=== PATIENT | female | born 1960 | race Caucasian/White ===

== ENCOUNTER 2025-02-28 07:43 | Day surgery (SDC) | payer MEDICARE, MEDICAID ==
[2025-02-28 07:58] VITALS: BP 148/85; PULSE 63
[2025-02-28] MEDS: Polymyxin B/Trimethoprim 10 ML Bottle EYELF SCH (08:18)
[2025-02-28] MEDS: Tropicamide 1% Ophth Soln 3 ML Bottle EYELF SCH (08:33)
[2025-02-28] MEDS: Tetracaine HCl/PF 0.5% 4 ML Bottle EYEBOTH SCH (10:12)
[2025-02-28] MEDS: Lidocaine 1% PF 2 ML SDV INJECT SCH (10:38)
[2025-02-28] MEDS: Cefuroxime 10 MG/ML SYRINGE EYELF SCH (10:40)
[2025-02-28] MEDS: Pilocarpine 4% Ophth Soln 15 ML Bot EYELF SCH (10:51)
== END 2025-02-28 10:59 ==
LOC: JD.SDS 07:43
PROVIDERS: ATTEND Ophthalmology
DX: H25.813 Combined forms of age-related cataract, bilateral (principal); H00-H59 Diseases of the eye and adnexa; H02.33 Blepharochalasis right eye, unspecified eyelid; D23.121 Other benign neoplasm of skin of left upper eyelid, including canthus; H35.3131 Nonexudative age-related macular degeneration, bilateral, early dry stage; H35.363 Drusen (degenerative) of macula, bilateral; H16.103 Unspecified superficial keratitis, bilateral; H16.223 Keratoconjunctivitis sicca, not specified as Sjogren's, bilateral; D23.122 Other benign neoplasm of skin of left lower eyelid, including canthus; H02.831 Dermatochalasis of right upper eyelid; H02.834 Dermatochalasis of left upper eyelid; H57.813 Brow ptosis, bilateral; Z79.899 Other long term (current) drug therapy
CPT/HCPCS: 66984; A9270; J0697; J2003; 00142; J3490; V2632

== ENCOUNTER 2025-03-28 08:57 | Day surgery (SDC) | payer MEDICARE, MEDICAID ==
[2025-03-28] MEDS: Tetracaine HCl/PF 0.5% 4 ML Bottle EYEBOTH SCH (07:03)
[2025-03-28] MEDS: Lidocaine 1% PF 2 ML SDV INJECT SCH (07:03)
[2025-03-28] MEDS: Pilocarpine 4% Ophth Soln 15 ML Bot EYERT SCH (07:04)
[2025-03-28] MEDS: Cefuroxime 10 MG/ML SYRINGE EYERT SCH (07:04)
[2025-03-28] MEDS: Polymyxin B/Trimethoprim 10 ML Bottle EYERT SCH (07:12)
[2025-03-28 09:21] VITALS: BP 146/97; PULSE 66
[2025-03-28] MEDS: Tropicamide 1% Ophth Soln 3 ML Bottle EYERT SCH (09:38)
== END 2025-03-28 11:28 | disposition home or self-care (01) ==
LOC: JD.SDS 08:57
PROVIDERS: ATTEND Ophthalmology
DX: H25.811 Combined forms of age-related cataract, right eye (principal); H35.3131 Nonexudative age-related macular degeneration, bilateral, early dry stage; H35.363 Drusen (degenerative) of macula, bilateral; H02.831 Dermatochalasis of right upper eyelid; H02.834 Dermatochalasis of left upper eyelid; H57.813 Brow ptosis, bilateral; Z96.1 Presence of intraocular lens; Z79.899 Other long term (current) drug therapy
CPT/HCPCS: 66984; A9270; J0697; J3490